=== PATIENT | female | born 1975 | race Two or more races ===

== ENCOUNTER 2019-10-13 05:33 | Day surgery (SDC) | payer OTHER ==
[~2019-10-13 05:33] MED LIST: [UNRECOGNIZED DRUG - OTHER]
== END 2019-10-13 13:30 | disposition home or self-care (01) ==
LOC: CIR.AMB 05:33
PROVIDERS: Plastic Surgery
PROC: 0HRT0JZ Replacement of Right Breast with Synthetic Substitute, Open Approach (ICD-10-PCS; 2019-10-13)
PROC: 0H0U0ZZ Alteration of Left Breast, Open Approach (ICD-10-PCS; 2019-10-13)
PROC: 0HPT0JZ Removal of Synthetic Substitute from Right Breast, Open Approach (ICD-10-PCS; principal; 2019-10-13 07:00)
DX: N65.1 Disproportion of reconstructed breast (principal); N62 Hypertrophy of breast; Z90.11 Acquired absence of right breast and nipple
CPT/HCPCS: 19330; 19342; 19318; C1789